=== PATIENT | female | born 1970 | race Caucasian/White ===

== ENCOUNTER 2017-01-10 08:37 | Day surgery (SDC) | payer OTHER ==
[~2017-01-10] VITALS: Ht 167.6 cm; Wt 58.0 kg
[2017-01-10 09:19] VITALS: BP 130/71
[2017-01-10 11:54] VITALS: BP 106/70
== END 2017-01-10 12:25 | disposition home or self-care (01) ==
LOC: GI 08:37 → OR 11:30 → GI 11:30
PROVIDERS: Internal Medicine Gastroenterology
PROC: 0DB68ZX Excision of Stomach, Via Natural or Artificial Opening Endoscopic, Diagnostic (ICD-10-PCS; principal; 2017-01-10 10:30)
DX: K29.70 Gastritis, unspecified, without bleeding (principal)
CPT/HCPCS: 43235; J1200; J1610; J2250; J2310; J3010; J3490